=== PATIENT | male | born 1990 | race Caucasian/White ===

== ENCOUNTER 2017-08-12 22:01 | Emergency (ER) | payer BC ==
[~2017-08-12] VITALS: Ht 170.2 cm; Wt 78.9 kg
[2017-08-13 00:02] VITALS: BP 130/87
== END 2017-08-13 00:02 | disposition home or self-care (01) ==
LOC: ED 22:01
DX: S43.014A Anterior dislocation of right humerus, initial encounter (principal); W17.89XA Other fall from one level to another, initial encounter; Y93.89 Activity, other specified; Y92.89 Other specified places as the place of occurrence of the external cause; Y99.8 Other external cause status
CPT/HCPCS: J1885

== ENCOUNTER 2019-05-30 04:27 | Emergency (ER) | payer BC ==
[~2019-05-30] VITALS: Ht 170.2 cm; Wt 71.2 kg
[2019-05-30 04:30] VITALS: Ht 170.2 cm; Wt 71.2 kg
[2019-05-30 06:20] VITALS: BP 116/81
== END 2019-05-30 06:20 | disposition home or self-care (01) ==
LOC: ED 04:27
DX: S43.004A Unspecified dislocation of right shoulder joint, initial encounter (principal); X58.XXXA Exposure to other specified factors, initial encounter; Y93.89 Activity, other specified; Y92.89 Other specified places as the place of occurrence of the external cause; Y99.8 Other external cause status
CPT/HCPCS: J1885; J2405; J3010

== ENCOUNTER 2019-12-07 01:37 | Emergency (ER) | payer BC ==
[~2019-12-07] VITALS: Ht 170.2 cm; Wt 73.5 kg
[2019-12-07 01:47] VITALS: Ht 170.2 cm; Wt 73.5 kg
[2019-12-07 05:11] VITALS: BP 116/65
== END 2019-12-07 05:11 | disposition home or self-care (01) ==
LOC: ED 01:37
DX: S43.004A Unspecified dislocation of right shoulder joint, initial encounter (principal); V49.9XXA Car occupant (driver) (passenger) injured in unspecified traffic accident, initial encounter; Y93.89 Activity, other specified; Y92.89 Other specified places as the place of occurrence of the external cause; Y99.8 Other external cause status
CPT/HCPCS: J1885; J3010; J3490; J7050; Q0092

== ENCOUNTER 2020-01-21 14:23 | Emergency (ER) | payer BC ==
[~2020-01-21] VITALS: Ht 172.7 cm; Wt 73.9 kg
[2020-01-21 14:27] VITALS: BP 151/104; Ht 172.7 cm; Wt 73.9 kg
== END 2020-01-21 15:08 | disposition home or self-care (01) ==
LOC: ED 14:23
DX: B08.1 Molluscum contagiosum (principal); E11.9 Type 2 diabetes mellitus without complications
CPT/HCPCS: 82962

== ENCOUNTER 2020-02-09 23:28 | Emergency (ER) | payer BC ==
[~2020-02-09] VITALS: Ht 170.2 cm; Wt 76.3 kg
[2020-02-09 23:34] VITALS: Ht 170.2 cm; Wt 76.3 kg
[2020-02-10 01:38] VITALS: BP 128/80
== END 2020-02-10 01:25 | disposition home or self-care (01) ==
LOC: ED 23:28
DX: S43.084A Other dislocation of right shoulder joint, initial encounter (principal); X50.3XXA Overexertion from repetitive movements, initial encounter; Y93.89 Activity, other specified; Y92.89 Other specified places as the place of occurrence of the external cause; Y99.8 Other external cause status
CPT/HCPCS: Q0092

== ENCOUNTER 2020-03-11 00:39 | Emergency (ER) | payer BC ==
[~2020-03-11] VITALS: Ht 170.2 cm; Wt 77.1 kg
[2020-03-11 00:47] VITALS: Ht 170.2 cm; Wt 77.1 kg
[2020-03-11 02:59] VITALS: BP 136/99
== END 2020-03-11 03:47 | disposition home or self-care (01) ==
LOC: ED 00:39
DX: S43.004A Unspecified dislocation of right shoulder joint, initial encounter (principal); X58.XXXA Exposure to other specified factors, initial encounter; Y93.89 Activity, other specified; Y92.89 Other specified places as the place of occurrence of the external cause; Y99.8 Other external cause status
CPT/HCPCS: J3490; J7030; Q0092

== ENCOUNTER 2020-09-17 08:59 | Emergency (ER) | payer BC ==
[~2020-09-17] VITALS: Ht 170.2 cm; Wt 77.1 kg
[2020-09-17 09:06] VITALS: Ht 170.2 cm; Wt 77.1 kg
[2020-09-17 12:51] VITALS: BP 126/86
== END 2020-09-17 12:51 | disposition home or self-care (01) ==
LOC: ED 08:59
DX: S43.084A Other dislocation of right shoulder joint, initial encounter (principal); F14.90 Cocaine use, unspecified, uncomplicated; E11.9 Type 2 diabetes mellitus without complications; W06.XXXA Fall from bed, initial encounter; Y93.89 Activity, other specified; Y92.89 Other specified places as the place of occurrence of the external cause; Y99.8 Other external cause status
CPT/HCPCS: 82962; J1885; J3490